=== PATIENT | male | born 1990 | race Caucasian/White ===

== ENCOUNTER 2022-01-31 14:11 | Inpatient (IN) | payer OTHER ==
[2022-01-31] MEDS ORDERED: BISMUTH SUBSALICYLATE 524 MG/30 ML PO PRN (14:38)
[2022-01-31] MEDS ORDERED: MAG HYDROX/AL HYDROX/SIMETH 30 ML UNIT-DOSE CUP PO PRN (14:38)
[2022-01-31] MEDS ORDERED: MENTHOL/PHENOL 1 EACH UD MM PRN (14:38)
[2022-01-31] MEDS ORDERED: IBUPROFEN 400 MG TABLET (FP) PO PRN (14:38)
[2022-01-31] MEDS ORDERED: ACETAMINOPHEN 325 MG TABLET (FP) PO PRN (14:38)
[2022-01-31] MEDS ORDERED: methaDONE HCL 10 MG TABLET (FOR DETOX USE ONLY) PO ONE ×2 (14:38→19:30)
[2022-01-31] MEDS ORDERED: MAGNESIUM CITRATE 300 ML BOTTLE PO PRN (14:38)
[2022-01-31] MEDS ORDERED: cloNIDine HCL 0.1 MG TABLET PO PRN (14:38)
[2022-01-31] MEDS ORDERED: MAGNESIUM HYDROX 2400MG/30ML ORAL SUSPENSION 30 ML CUP PO PRN (14:38)
[2022-01-31] MEDS ORDERED: NICOTINE 10 MG CARTRIDGE (INHALER) IH PRN (14:38)
[2022-01-31] MEDS ORDERED: ONDANSETRON *ODT* 4 MG TABLET SL PRN (14:38)
[2022-01-31] MEDS ORDERED: LOPERAMIDE HCL 2 MG CAPSULE PO PRN (14:38)
[2022-01-31 18:18] VITALS: BMI 22.4
[2022-01-31] MEDS: ACETAMINOPHEN 325 MG TABLET (FP) PO PRN (19:28)
[2022-01-31] MEDS: hydrOXYzine PAMOATE 25 MG CAPSULE (FP) PO SCH ×2 (19:28→23:33)
[2022-01-31] MEDS: PRENATAL VITAMINS W/ FOLIC ACID TABLET (FP) PO SCH (19:32)
[2022-01-31] MEDS: NICOTINE 14 MG/24 HOURS TOPICAL PATCH TD SCH (19:32)
[2022-01-31] MEDS: MELATONIN 5 MG TABLETS PO SCH (23:33)
[2022-01-31] MEDS: THIAMINE HCL 100 MG TABLET (FP) PO SCH (23:33)
[2022-02-01] MEDS: hydrOXYzine PAMOATE 25 MG CAPSULE (FP) PO SCH ×5 (07:33→22:45)
[2022-02-01] MEDS ORDERED: methaDONE HCL 10 MG TABLET (FOR DETOX USE ONLY) ONE (08:40)
[2022-02-01] MEDS: PRENATAL VITAMINS W/ FOLIC ACID TABLET (FP) PO SCH (10:20)
[2022-02-01] MEDS: NICOTINE 14 MG/24 HOURS TOPICAL PATCH TD SCH (10:21)
[2022-02-01 12:08] LABS: HEMATOCRIT 25.8 % (35.4-49); HEMOGLOBIN 7.7 GM/dL (11.7-16.9); MCH 20.6 pg (25.7-33.7); MCHC 29.9 g/dl (32.0-35.9); MEAN CELL VOLUME 68.9 fl (80-96); MEAN PLT VOLUME 7.6 fl (7.5-11.1); PLATELET COUNT 407 10^3/uL (134-434); RBC 3.75 M/mm3 (4.00-5.60); RDW 17.3 % (11.9-15.9)
[2022-02-01 13:08] LABS: ALBUMIN 2.4 g/dl (3.4-5.0); BILIRUBIN,TOTAL 0.2 mg/dL (0.2-1); BLOOD UREA NITROGEN 16.2 mg/dL (7-18); CALCIUM 7.9 mg/dL (8.5-10.1); CREATININE 0.7 mg/dL (0.55-1.3); TOT PROT 6.7 g/dl (6.4-8.2)
[2022-02-01] MEDS: MELATONIN 5 MG TABLETS PO SCH (22:45)
[2022-02-01] MEDS: THIAMINE HCL 100 MG TABLET (FP) PO SCH (22:45)
[2022-02-01] MEDS: METHOCARBAMOL 500 MG TABLET PO PRN (22:45)
[2022-02-02 06:10] LABS: SARS-CoV-2 NAA Not Detected (Not Detected)
[2022-02-02] MEDS: hydrOXYzine PAMOATE 25 MG CAPSULE (FP) PO SCH ×5 (07:06→23:16)
[2022-02-02] MEDS: METHOCARBAMOL 500 MG TABLET PO PRN (07:07)
[2022-02-02] MEDS ORDERED: methaDONE HCL 10 MG TABLET (FOR DETOX USE ONLY) PO ONE (10:00)
[2022-02-02] MEDS: PRENATAL VITAMINS W/ FOLIC ACID TABLET (FP) PO SCH (10:47)
[2022-02-02] MEDS: NICOTINE 14 MG/24 HOURS TOPICAL PATCH TD SCH (10:48)
[2022-02-02 12:45] LABS: BASO % 0.7 % (0-2.0); EOS % 2.1 % (0-4.5); HEMATOCRIT 28.4 % (35.4-49); HEMOGLOBIN 8.6 GM/dL (11.7-16.9); LYMPH % 15.4 % (8-40); MCH 20.9 pg (25.7-33.7); MCHC 30.3 g/dl (32.0-35.9); MEAN PLT VOLUME 8.1 fl (7.5-11.1); MONO % 8.4 % (3.8-10.2); NEUT % 73.4 % (42.8-82.8); PLATELET COUNT 378 10^3/uL (134-434); RBC 4.12 M/mm3 (4.00-5.60); RDW 17.4 % (11.9-15.9); WHITE BLOOD COUNT 8.4 K/mm3 (4.0-10.0)
[2022-02-02 14:49] LABS: ANISOCYTOSIS 2+; MACROCYTOSIS 0; OVALOCYTE 2+; TEAR DROP CELLS 1+
[2022-02-02] MEDS: MELATONIN 5 MG TABLETS PO SCH (23:16)
[2022-02-02] MEDS: THIAMINE HCL 100 MG TABLET (FP) PO SCH (23:16)
[2022-02-03] MEDS: hydrOXYzine PAMOATE 25 MG CAPSULE (FP) PO SCH ×5 (07:09→22:47)
[2022-02-03] MEDS: METHOCARBAMOL 500 MG TABLET PO PRN ×2 (07:09→22:48)
[2022-02-03] MEDS ORDERED: methaDONE HCL 10 MG TABLET (FOR DETOX USE ONLY) ONE (09:56)
[2022-02-03] MEDS: PRENATAL VITAMINS W/ FOLIC ACID TABLET (FP) PO SCH (10:42)
[2022-02-03] MEDS: NICOTINE 14 MG/24 HOURS TOPICAL PATCH TD SCH (10:43)
[2022-02-03] MEDS: MELATONIN 5 MG TABLETS PO SCH (22:47)
[2022-02-03] MEDS: CALCIUM CARBONATE 650 MG TABLET PO SCH (22:47)
[2022-02-03] MEDS: THIAMINE HCL 100 MG TABLET (FP) PO SCH (22:47)
[2022-02-03] MEDS: ACETAMINOPHEN 325 MG TABLET (FP) PO PRN (22:47)
[2022-02-04] MEDS: hydrOXYzine PAMOATE 25 MG CAPSULE (FP) PO SCH ×5 (07:31→22:21)
[2022-02-04] MEDS ORDERED: methaDONE HCL 10 MG TABLET (FOR DETOX USE ONLY) PO ONE (10:00)
[2022-02-04] MEDS: PRENATAL VITAMINS W/ FOLIC ACID TABLET (FP) PO SCH (10:36)
[2022-02-04] MEDS: CALCIUM CARBONATE 650 MG TABLET PO SCH ×2 (10:37→22:21)
[2022-02-04] MEDS: NICOTINE 14 MG/24 HOURS TOPICAL PATCH TD SCH (10:40)
[2022-02-04] MEDS: CYANOCOBALAMIN 1,000 MCG TABLET (FP) PO SCH (11:08)
[2022-02-04] MEDS: FERROUS SO4 325 MG TABLET (FP) PO SCH ×2 (11:10→17:50)
[2022-02-04] MEDS: FOLIC ACID 1 MG TABLET (FP) PO SCH (11:10)
[2022-02-04] MEDS: ACETAMINOPHEN 325 MG TABLET (FP) PO PRN (16:49)
[2022-02-04] MEDS: MELATONIN 5 MG TABLETS PO SCH (22:21)
[2022-02-04] MEDS: THIAMINE HCL 100 MG TABLET (FP) PO SCH (22:21)
[2022-02-05] MEDS: FERROUS SO4 325 MG TABLET (FP) PO SCH (08:39)
[2022-02-05] MEDS: hydrOXYzine PAMOATE 25 MG CAPSULE (FP) PO SCH ×2 (08:39→10:25)
[2022-02-05 08:51] VITALS: BP 134/75; PULSE 102; TEMP 98.7
[2022-02-05] MEDS: NICOTINE 14 MG/24 HOURS TOPICAL PATCH TD SCH (10:24)
[2022-02-05] MEDS: FOLIC ACID 1 MG TABLET (FP) PO SCH (10:25)
[2022-02-05] MEDS: CYANOCOBALAMIN 1,000 MCG TABLET (FP) PO SCH (10:25)
[2022-02-05] MEDS: PRENATAL VITAMINS W/ FOLIC ACID TABLET (FP) PO SCH (10:25)
[2022-02-05] MEDS: ACETAMINOPHEN 325 MG TABLET (FP) PO PRN (11:39)
== END 2022-02-05 12:13 | disposition home or self-care (01) | DRG 773 ==
LOC: YASAS 14:11 → Y6N 16:40 → Y3N 18:35
PROVIDERS: ADMIT Allergy & Immunology; ATTEND Allergy & Immunology
PROC: HZ2ZZZZ Detoxification Services for Substance Abuse Treatment (ICD-10-PCS; principal; 2022-01-31)
DX: F11.23 Opioid dependence with withdrawal (principal); F14.10 Cocaine abuse, uncomplicated; F17.210 Nicotine dependence, cigarettes, uncomplicated; D64.9 Anemia, unspecified; E83.51 Hypocalcemia; E88.09 Other disorders of plasma-protein metabolism, not elsewhere classified; R74.01 Elevation of levels of liver transaminase levels; Z59.01 Sheltered homelessness
CPT/HCPCS: 36415; 80053; 85025; 85027; 86780; 93005; 93010; C9803-CS; J0735; U0003; U0005

== ENCOUNTER 2022-03-04 15:27 | Inpatient (IN) | payer OTHER ==
[2022-03-04 18:29] VITALS: BMI 23.3
[2022-03-04] MEDS ORDERED: MAG HYDROX/AL HYDROX/SIMETH 30 ML UNIT-DOSE CUP PO PRN (20:02)
[2022-03-04] MEDS ORDERED: BISMUTH SUBSALICYLATE 524 MG/30 ML PO PRN (20:02)
[2022-03-04] MEDS ORDERED: LOPERAMIDE HCL 2 MG CAPSULE PO PRN (20:02)
[2022-03-04] MEDS ORDERED: BENZOCAINE/MENTHOL (CHLORASEPTIC ) LOZENGE MM PRN (20:02)
[2022-03-04] MEDS ORDERED: DICYCLOMINE HCL 10 MG CAPSULE PO PRN (20:02)
[2022-03-04] MEDS ORDERED: MELATONIN 5 MG TABLETS PO PRN (20:02)
[2022-03-04] MEDS ORDERED: MAGNESIUM CITRATE 300 ML BOTTLE PO PRN (20:02)
[2022-03-04] MEDS ORDERED: IBUPROFEN 400 MG TABLET (FP) PO PRN (20:02)
[2022-03-04] MEDS ORDERED: P-EPHED 60MG/TRIPROLIDI 2.5MG TABLET PO PRN (20:02)
[2022-03-04] MEDS ORDERED: guaiFENesin 200 MG/10 ML 10 ML UNIT-DOSE CUPS PO PRN (20:02)
[2022-03-04] MEDS ORDERED: ONDANSETRON *ODT* 4 MG TABLET SL PRN (20:02)
[2022-03-04] MEDS ORDERED: ACETAMINOPHEN 325 MG TABLET (FP) PO PRN ×2 (20:02)
[2022-03-04] MEDS ORDERED: MAGNESIUM HYDROX 2400MG/30ML ORAL SUSPENSION 30 ML CUP PO PRN (20:02)
[2022-03-04] MEDS ORDERED: METHOCARBAMOL 500 MG TABLET PO PRN (20:02)
[2022-03-04] MEDS ORDERED: NICOTINE POLACRILEX 2 MG GUM BUC PRN (20:02)
[2022-03-04] MEDS ORDERED: NICOTINE 10 MG CARTRIDGE (INHALER) IH PRN (20:02)
[2022-03-04] MEDS: THIAMINE HCL 100 MG TABLET (FP) PO SCH (22:59)
[2022-03-05] MEDS ORDERED: PRENATAL VITAMINS W/ FOLIC ACID TABLET (FP) PO SCH (10:00)
[2022-03-06] MEDS: THIAMINE HCL 100 MG TABLET (FP) PO SCH
[2022-03-06 09:22] VITALS: BP 158/98; PULSE 72; TEMP 96.9
== END 2022-03-06 12:04 | disposition home or self-care (01) | DRG 773 ==
LOC: YASAS 15:27 → Y6N 20:34
PROVIDERS: ADMIT Allergy & Immunology; ATTEND Allergy & Immunology
PROC: HZ2ZZZZ Detoxification Services for Substance Abuse Treatment (ICD-10-PCS; principal; 2022-03-04)
DX: F11.23 Opioid dependence with withdrawal (principal); F11.220 Opioid dependence with intoxication, uncomplicated; F14.20 Cocaine dependence, uncomplicated; F17.210 Nicotine dependence, cigarettes, uncomplicated; R00.1 Bradycardia, unspecified; Z59.00 Homelessness unspecified
CPT/HCPCS: 87811; C9803-CS; Q0162; U0003; U0005